=== PATIENT | female | born 2000 | race Caucasian/White ===

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

== ENCOUNTER 2021-06-07 18:43 | Inpatient (IN) ==
[2021-06-07] MEDS ORDERED: ceFAZolin 2000MG 2,000 MG/15 ML SYR IV SCH (19:00)
[2021-06-07] MEDS ORDERED: CITRIC ACID/SODIUM CITRATE 15 ML UDC PO SCH (19:00)
[2021-06-07] MEDS ORDERED: LACTATED RINGER'S 1,000 ML IV SCH ×2 (19:00→20:00)
[2021-06-07] MEDS ORDERED: CITRIC ACID/SODIUM CITRATE 15 ML UDC ONE (19:02)
[2021-06-07] MEDS ORDERED: PHENYLEPHRINE HCL 10 MG/ML VIAL ONE (19:08)
[2021-06-07] MEDS ORDERED: SUCCINYLCHOLINE 100MG/5ML SYR IV ONE (19:08)
[2021-06-07] MEDS ORDERED: ONDANSETRON INJ 2 MG/ML 2 ML VIAL ONE (19:08)
[2021-06-07] MEDS ORDERED: OXYTOCIN 10 UNITS/ML 10ML VIAL ONE (19:08)
[2021-06-07] MEDS ORDERED: PROPOFOL IV EMULSION 10 MG/ML 20 ML VIAL IV ONE (19:08)
[2021-06-07] MEDS ORDERED: fentaNYL citrate 100 MCG/2 ML VIAL ONE (19:08)
--- NOTE | 2021-06-07 19:12 | Anesthesiology Consultation ---
Date of Service June 07, 2021 Assessment & Plan (1) Encounter for pre-operative examination: Chart Review Chart Review: Acceptable Risk for Surgery and Patient NOT seen in Pre Admission Testing Consults Requested none History Surgery Operation Date: 06/07/21 19:40 Proposed Procedures p Section in LD(Bilateral) - Lionel Moran MD Allergies Allergy/AdvReac Type Severity Reaction Status Date / Time No Known Allergies Allergy Unknown Verified 05/06/18 14:35 [id number] Allergy Unknown Unknown Uncoded 05/06/18 14:35 Medications Home Medications Medication Instructions Recorded Confirmed Last Taken vitamins-iron fumarate 27 1 tab PO DAILY 05/06/18 05/06/18 05/05/18 08:00 mg iron-folic acid 0.8 mg tablet ( Vitamin) sertraline 50 mg tablet (Zoloft) 50 mg PO DAILY 05/06/18 05/06/18 05/06/18 08:00 ibuprofen 600 mg tablet 600 mg PO Q6H PRN #30 tab 05/09/18 Unknown Exercise / Class Metabolic Activity II 4-5 Yardwork/Stairs/Walk up hill Past Anesthesia History No Hx of Anesthesia Complications and No Family Hx of Anesthesia Complications History of PONV No Hx of PONV and No Hx of Motion Sickness Social History Smoking Status: Never smoker Hx Alcohol Use: No Hx Substance Use: No substance use type: does not use Testing Laboratory Results 06/07/21 19:20
[2021-06-07] MEDS ORDERED: MoRPHine SULFATE PF 1 MG/ML 10 ML AMP/VIAL ONE (19:25)
[2021-06-07 19:31] LABS: Hematocrit (blood only) 35.7 % (37-47); Hemoglobin 12.7 g/dL (12.0-16.0); Mean Corpuscular Hemoglobin 29.7 pg (25-34); Mean Corpuscular Hgb Conc 35.6 g/dL (32-36); Mean Corpuscular Volume 83.4 fL (80-100); Mean Platelet Volume 10.7 fL (7.4-10.4); Platelet Count 196 K/uL (130-400); RDW Coefficient of Variation 13.5 % (11.5-14.5); RDW Standard Deviation 40.5 fL (36.4-46.3); Red Blood Count 4.28 M/uL (4.2-5.4); White Blood Count 12.48 K/uL (4.8-10.8)
[2021-06-07 19:54] LABS: ALC (manual) 3.58 K/uL (1.2-3.4); ANC (manual) 8.04 K/uL (1.4-6.5); Basophils # (manual) 0.11 K/uL (0-0.2); Basophils % (manual) 0.9 %; Eosinophils # (manual) 0.21 K/uL (0-0.5); Eosinophils % (manual) 1.7 %; Lymphocytes # (manual) 3.58 K/uL (1.2-3.4); Lymphocytes % (manual) 28.7 %; Monocytes # (manual) 0.54 K/uL (0.11-0.59); Monocytes % (manual) 4.3 %; Neutrophils # (manual) 8.04 K/uL (1.4-6.5); Neutrophils % (manual) 64.4 %; RBC Morphology Unremarkable
[2021-06-07 20:13] LABS: Fibrinogen 441 mg/dl (184-400); Partial Thromboplastin Ratio 0.9; Partial Thromboplastin Time 24.7 Seconds (21.0-31.0); Prothrombin Time 10.3 Seconds (9.0-12.0)
--- NOTE | 2021-06-07 20:50 | XRay Report ---
KUB CLINICAL HISTORY: Incomplete instrument count. section. FINDINGS: 4 AP, portable, supine abdominal radiographs are obtained. No prior studies are available f or comparison at the time of dictation. There is a nonobstructed abdominal bowel gas pattern noting m oderate colonic fecal retention. Soft tissue gas projects over the pelvis, likely due to recent surge ry. There is no radiodense foreign body identified to suggest retained surgical implement. A large so ft tissue mass projecting over the pelvis likely represents the gravid uterus. Pelvic phleboliths are noted. The bony structures appear intact. IMPRESSION: 1. There is no radiographic evidence of retained surgical implement. 2. No bowel obstruction. 3. Additional findings as above. Electronically signed by: Yuriy Michaels M.D. 06/07/2021 8:49 PM
[2021-06-07] MEDS ORDERED: MAGNESIUM HYDROXIDE SUSP 30 ML UDC PO PRN (21:13)
[2021-06-07] MEDS ORDERED: MEPERIDINE HCL 50 MG/ML CARP IV PRN (21:13)
[2021-06-07] MEDS ORDERED: KETOROLAC 30 MG/ML VIAL IV PRN (21:13)
[2021-06-07] MEDS ORDERED: BENZOCAINE 20% AER SPR 82.5 GM CAN EXT PRN (21:13)
[2021-06-07] MEDS ORDERED: PROMETHAZINE HCL 25 MG in SODIUM CHLORIDE 0.9% 50 ML IV PRN (21:13)
[2021-06-07] MEDS ORDERED: HYDROCORTISONE ACETATE 25 MG SUPP PR PRN (21:13)
[2021-06-07] MEDS ORDERED: DIPHTHERIA/TETANUS/PERTUSSIS 0.5 ML SYR/VIAL IM ONE (21:13)
[2021-06-07] MEDS ORDERED: SENNA 8.6 MG TAB PO PRN (21:13)
[2021-06-07] MEDS ORDERED: MEASLES, MUMPS & RUBELLA VIRUS VIAL SQ ONE (21:18)
--- NOTE | 2021-06-07 21:24 | Anesthesiology Progress Note ---
Date of Service June 07, 2021 Anesthesia Post Procedure Vital Signs Vital Signs: Temp Pulse Resp BP Pulse Ox 06/07/21 21:19 77 130/87 06/07/21 21:18 76 100 06/07/21 21:13 82 99 06/07/21 21:08 72 144/71 H 99 06/07/21 21:03 82 98 06/07/21 20:58 77 95 06/07/21 20:53 73 100 06/07/21 20:48 80 114/72 100 06/07/21 20:46 18 100 06/07/21 20:45 36.8 C 20 Pain Intensity Bilateral Lower Abdomen: Pain Intensity: 3 Transfer of Care Handoff Completed per policy Notes Mental Status: alert / awake / arousable and participated in evaluation Patient Amnestic to Procedure: Yes Nausea / Vomiting: adequately controlled Pain: adequately controlled Airway Patency, RR, SpO2: stable & adequate BP & HR: stable & adequate Hydration State: stable & adequate Anesthetic Complications: no major complications apparent and Pt Satisfied with anesthetic care
[2021-06-07] MEDS ORDERED: NO NARCOTICS OR SEDATIVES SCH (22:00)
[2021-06-07] MEDS ORDERED: NALBUPHINE HCL INJ 10 MG/ML AMP IV PRN (22:00)
[2021-06-07] MEDS ORDERED: ONDANSETRON INJ 2 MG/ML 2 ML VIAL IV PRN (22:00)
[2021-06-07] MEDS ORDERED: SODIUM CHLORIDE 0.9% 1000ML 1,000 ML IV SCH (22:00)
[2021-06-07] MEDS ORDERED: NALOXONE HCL 0.4 MG/1 ML VIAL/CARP IV PRN (22:00)
[2021-06-07] MEDS ORDERED: NALOXONE HCL 1 MG in SODIUM CHLORIDE 0.9% 1000ML 1,000 ML IV PRN (22:00)
[2021-06-07] MEDS ORDERED: LACTATED RINGER'S 500 ML IV PRN (22:00)
[2021-06-07] MEDS ORDERED: ePHEDrine sulfate 50 MG/ML AMP IV PRN (22:00)
[2021-06-07] MEDS ORDERED: DC INTRASPINAL MORPHINE SCH (22:00)
[2021-06-07] MEDS ORDERED: diphenhydrAMINE 50 MG/ML VIAL IV PRN (22:00)
[2021-06-07] MEDS ORDERED: MoRPHine SULFATE 2 MG/ML CARP IV PRN (22:00)
[2021-06-07] MEDS ORDERED: PROMETHAZINE HCL 12.5 MG in SODIUM CHLORIDE 0.9% 50 ML IV PRN (22:00)
[2021-06-07] MEDS ORDERED: MoRPHine SULFATE PF 1 MG/ML 10 ML AMP/VIAL INT SPINAL ONE (22:00)
[2021-06-07] MEDS ORDERED: NALOXONE HCL 0.08 MG in SYRINGE 1.8 ML IV PRN (22:00)
--- NOTE | 2021-06-07 22:01 | Operative Report (OR) ---
DATE OF SERVICE: 06/07/2021 PREOPERATIVE DIAGNOSES: The patient is a 21-year-old 2, para 1-0-0-1, at 39 weeks and 1 day gestation, presented to labor and delivery with spontaneous rupture of membranes, heavy vaginal bleeding , contractions, clinical abruption and remote from delivery. POSTOPERATIVE DIAGNOSES: The patient is a 21-year-old 2, para 1-0-0-1, at 39 weeks and 1 day gestation, presented to labor and delivery with spontaneous rupture of membranes, heavy vaginal bleeding , contractions, clinical abruption and remote from delivery. PROCEDURE: Emergency Primary low transverse with Pfannenstiel skin incision. SURGEON: Lionel Moran MD. ENRICHMENT ASSISTANT: Cortez Vincent MD. ESTIMATED BLOOD LOSS: 500 mL. URINE OUTPUT: Catheter drained 250 mL of clear urine. ANESTHESIA: Spinal. ANESTHESIOLOGIST: Dr. Sales. COMPLICATIONS: None. FINDINGS: Baby was a viable male delivered in cephalic presentation at 19:45, Apgars were 7/8, weight is 3533 grams. Maternal findings: Normal uterus, fallopian tubes, and ovaries. There was bloody amniotic fluid. INDICATIONS FOR PROCEDURE: The patient is a 21-year-old -0-0-1, at 39 weeks and 1 day of gestation, who presented to labor and delivery with heavy vaginal bleeding, amniotic fluid leakage and contractions started about an hour ago. She came home from work and noticed bright red bleeding in the bathroom and on her underwear and just came to the labor and delivery. On the speculum exam, we saw abundant amniotic fluid, which was all bloody and blood clots coming behind. Her cervix was 3 cm dilated and head was high at -3 station. She was remote from delivery, heart rate was reassuring and category 1. Decision was made to proceed with emergency being remote from delivery with active vaginal bleeding. DESCRIPTION OF PROCEDURE: The patient was taken to the OR and spinal anesthesia was given without difficulty. She was placed in dorsal supine position with a leftward tilt. She was prepared and draped in the usual sterile fashion. A Pfannenstiel skin incision was made, carried through to the underlying layer of fascia with the scalpel. Fascia was extended laterally with the help of Sierra scissors and rectus fascia was taken down from the muscles with Sierra scissors and bluntly with fingers. Rectus muscles were already . Peritoneum was entered bluntly and extended laterally with the help of fingers. Bladder blade was inserted. Vesicouterine peritoneum was grasped with pickups, and entered sharply with Metzenbaum scissors. A bladder blade was created digitally and bladder blade was reinserted. Lower uterine segment was incised in a transverse fashion. Incision was extended laterally with the help of fingers and bandage scissors. We came across with bloody amniotic fluid. Head was delivered without difficulty. Shoulders were delivered with minimal traction. The baby's mouth and nose were suctioned from bloody fluid, and the baby was moving and crying. Cord was clamped x2 and cut, and the baby was handed to the waiting pediatric team with Dr. Pollard, and then placenta was delivered manually as intact and complete. Uterus was exteriorized and cleared of all clots and debris. Uterus was firm and intact. Endometrium was checked to be cleaned and empty and then the uterine incision was repaired with 0 Vicryl in a running locked fashion and a second imbricating layer was placed with another 0 Vicryl in a running locked fashion. Excellent hemostasis was achieved. Cul-de-sac was irrigated with warm normal saline and suctioned. All the bloody fluid was suctioned in its entirety. Uterus was returned to the abdomen. Pelvis was irrigated with warm normal saline and suctioned. The gutters were also cleared and suctioned fluid from the bloody fluid, and incision was checked to be again hemostatic. Parietal peritoneum was reapproximated with 3-0 Vicryl in a running fashion. Rectus muscles were brought together with the same suture in a running fashion, under the fascia and rectus muscles were hemostatic. Rectus fascia was reapproximated with 0 Vicryl in a running fashion. Subcuticular fat tissue was brought together with 3-0 Vicryl in a running fashion. The skin was closed with 4-0 Monocryl in a subcuticular fashion. The patient tolerated the procedure well. Unable to do count due to emergency of the case, so we proceeded with x- ray after surgery and x-ray was negative for any foreign objects or sponges. She was taken to recovery room in stable condition. My logistics assistant was needed for retraction, aid during delivery of infant, visualization and hemostasis. Job ID: [id number] [facility]
[2021-06-07] MEDS: OXYTOCIN 20 UNITS in LACTATED RINGER'S 1,000 ML IV SCH (22:17)
[2021-06-07] MEDS: KETOROLAC 30 MG/ML VIAL IV PRN (22:23)
[2021-06-08] MEDS: OXYTOCIN 20 UNITS in LACTATED RINGER'S 1,000 ML IV SCH (06:26)
[2021-06-08 07:06] LABS: Basophils # (auto) 0.02 K/uL (0-0.2); Basophils % (auto) 0.1 %; Eosinophils % (auto) 0.6 %; Hematocrit (blood only) 35.3 % (37-47); Immature Granulocytes # (auto) 0.13 K/uL (0.00-0.02); Immature Granulocytes % (auto) 0.8 %; Lymphocytes # (auto) 2.52 K/uL (1.2-3.4); Lymphocytes % (auto) 16.1 %; Mean Corpuscular Hemoglobin 28.8 pg (25-34); Mean Corpuscular Volume 84.7 fL (80-100); Mean Platelet Volume 11.1 fL (7.4-10.4); Monocytes # (auto) 1.12 K/uL (0.11-0.59); Monocytes % (auto) 7.1 %; Neutrophils # (auto) 11.79 K/uL (1.4-6.5); Neutrophils % (auto) 75.3 %; Platelet Count 180 K/uL (130-400); RDW Coefficient of Variation 13.5 % (11.5-14.5); RDW Standard Deviation 41.2 fL (36.4-46.3); Red Blood Count 4.17 M/uL (4.2-5.4); White Blood Count 15.68 K/uL (4.8-10.8)
[2021-06-08] MEDS: KETOROLAC 30 MG/ML VIAL IV PRN ×2 (07:19→14:13)
[2021-06-08] MEDS: FERROUS SULFATE 325 MG TAB PO SCH (08:46)
[2021-06-08] MEDS: DOCUSATE SODIUM 100 MG CAP PO SCH ×2 (08:46→20:43)
[2021-06-08] MEDS: PRENATAL VITAMIN 1 TAB PO SCH (08:46)
[2021-06-08] MEDS: SIMETHICONE 80 MG CHEW PO SCH ×4 (08:46→20:44)
[2021-06-08] MEDS ORDERED: Nursing to Pharmacy Communication SCH (09:00)
[2021-06-08] MEDS ORDERED: SERTRALINE HCL 100 MG TABLET PO SCH ×2 (09:00→21:00)
--- NOTE | 2021-06-08 09:52 | Obstetrical Progress Note ---
Date of Service June 08, 2021 Assessment & Plan (1) Status post delivery: POD #1 Pt doing well anticipate disch tomorrow Results & Data ([facility]) Vital Signs (Past 12 Hours) Vital Signs Temp Pulse Pulse Resp BP BP Pulse Ox 06/08/21 09:48 70 97 06/08/21 09:43 71 97 06/08/21 09:38 68 97 06/08/21 09:33 72 96 06/08/21 09:28 70 96 06/08/21 09:23 71 96 06/08/21 09:18 76 97 06/08/21 09:13 71 96 06/08/21 09:08 78 96 06/08/21 09:03 69 97 06/08/21 08:58 79 98 06/08/21 08:53 78 97 06/08/21 08:48 85 97 06/08/21 08:45 90 94 06/08/21 08:43 82 96 06/08/21 08:38 85 96 06/08/21 08:33 84 98 06/08/21 08:30 78 20 98 06/08/21 08:28 79 97 06/08/21 08:25 91 H 90 06/08/21 08:23 105 H 100 06/08/21 08:18 76 99 06/08/21 08:15 76 93 06/08/21 08:13 75 98 06/08/21 08:08 76 97 06/08/21 08:03 73 97 06/08/21 07:58 78 97 06/08/21 07:53 75 96 06/08/21 07:49 80 94 06/08/21 07:48 79 95 06/08/21 07:43 76 97 06/08/21 07:41 73 94 06/08/21 07:38 73 98 06/08/21 07:33 80 97 06/08/21 07:30 37.0 C 20 97 06/08/21 07:28 78 96 06/08/21 07:23 74 100 06/08/21 07:18 81 97 06/08/21 07:13 72 109/64 100 06/08/21 07:08 85 99 06/08/21 07:03 82 99 06/08/21 06:58 84 100 06/08/21 06:53 82 100 06/08/21 06:48 82 100 06/08/21 06:43 83 100 06/08/21 06:38 81 100 06/08/21 06:33 80 99 06/08/21 06:28 78 100 06/08/21 06:23 83 99 06/08/21 06:18 82 100 06/08/21 06:15 18 99 06/08/21 06:13 90 100 06/08/21 06:08 86 100 06/08/21 06:03 78 99 06/08/21 05:58 74 100 06/08/21 05:53 86 100 06/08/21 05:48 82 99 06/08/21 05:43 85 100 06/08/21 05:38 93 H 100 06/08/21 05:33 84 99 06/08/21 05:28 72 97 06/08/21 05:23 73 98 06/08/21 05:18 73 96 06/08/21 05:13 70 95 06/08/21 05:08 74 96 06/08/21 05:03 76 96 06/08/21 05:00 18 99 06/08/21 04:58 74 96 06/08/21 04:53 73 96 06/08/21 04:48 75 95 06/08/21 04:43 72 96 06/08/21 04:38 73 96 06/08/21 04:33 75 96 06/08/21 04:28 74 96 06/08/21 04:23 83 97 06/08/21 04:18 77 98 06/08/21 04:13 79 98 06/08/21 04:08 76 98 06/08/21 04:03 80 97 06/08/21 04:00 36.9 C 76 18 114/65 99 06/08/21 03:58 78 98 06/08/21 03:53 79 98 06/08/21 03:48 74 98 06/08/21 03:43 78 98 06/08/21 03:39 76 114/65 06/08/21 03:38 82 99 06/08/21 03:33 79 99 06/08/21 03:28 84 100 06/08/21 03:23 79 98 06/08/21 03:18 69 100 06/08/21 03:13 77 100 06/08/21 03:08 77 100 06/08/21 03:03 83 100 06/08/21 03:00 18 100 06/08/21 02:58 88 100 06/08/21 02:53 74 98 06/08/21 02:48 78 99 06/08/21 02:43 73 99 06/08/21 02:38 76 98 06/08/21 02:33 74 99 06/08/21 02:32 82 93 06/08/21 02:28 70 97 06/08/21 02:23 72 96 06/08/21 02:18 68 96 06/08/21 02:13 75 97 06/08/21 02:08 74 97 06/08/21 02:03 72 97 06/08/21 02:00 18 99 06/08/21 01:58 74 97 06/08/21 01:53 80 98 06/08/21 01:48 73 97 06/08/21 01:43 74 97 06/08/21 01:38 71 98 06/08/21 01:33 78 98 06/08/21 01:28 82 98 06/08/21 01:23 77 98 06/08/21 01:18 75 98 06/08/21 01:13 76 98 06/08/21 01:08 77 98 06/08/21 01:03 81 99 06/08/21 01:00 18 100 06/08/21 00:58 83 98 06/08/21 00:53 75 99 06/08/21 00:48 85 99 06/08/21 00:43 77 99 06/08/21 00:38 83 99 06/08/21 00:33 82 99 06/08/21 00:30 18 100 06/08/21 00:28 91 H 99 06/08/21 00:23 81 99 06/08/21 00:18 83 99 06/08/21 00:13 76 100 06/08/21 00:08 77 100 06/08/21 00:03 80 99 06/07/21 23:58 87 100 06/07/21 23:53 90 100 06/07/21 23:48 90 98 06/07/21 23:43 86 99 06/07/21 23:40 82 94 06/07/21 23:38 83 100 06/07/21 23:33 87 99 06/07/21 23:30 36.9 C 74 18 111/76 100 06/07/21 23:29 74 111/70 06/07/21 23:28 85 100 06/07/21 23:23 92 H 100 06/07/21 23:18 87 100 06/07/21 23:13 80 99 06/07/21 23:08 80 100 06/07/21 23:03 83 100 06/07/21 22:59 88 114/73 06/07/21 22:58 88 99 06/07/21 22:53 82 99 06/07/21 22:48 78 99 06/07/21 22:46 18 06/07/21 22:43 84 99 06/07/21 22:38 85 99 06/07/21 22:33 86 100 06/07/21 22:28 78 100 06/07/21 22:23 83 100 06/07/21 22:19 76 122/77 06/07/21 22:18 92 H 100 06/07/21 22:16 36.8 C 18 06/07/21 22:13 84 100 06/07/21 22:09 82 120/73 06/07/21 22:08 81 100 06/07/21 22:03 84 100 06/07/21 21:59 84 121/73 06/07/21 21:58 84 100 06/07/21 21:53 81 100
[2021-06-08] MEDS ORDERED: LACTATED RINGER'S 1,000 ML IV SCH (15:30)
[2021-06-08] MEDS ORDERED: diphenhydrAMINE Capsule 25 MG CAP PO PRN (16:00)
[2021-06-08] MEDS ORDERED: ONDANSETRON INJ 2 MG/ML 2 ML VIAL IV PRN (16:00)
[2021-06-08] MEDS ORDERED: diphenhydrAMINE 50 MG/ML VIAL IV PRN (16:00)
[2021-06-08] MEDS ORDERED: bisacodyL 5 MG TABEC PO SCH (20:00)
[2021-06-08] MEDS: IBUPROFEN 600 MG TAB PO PRN (20:45)
[2021-06-09] MEDS: IBUPROFEN 600 MG TAB PO PRN ×3 (05:57→13:54)
[2021-06-09 07:05] LABS: Hematocrit (blood only) 32.3 % (37-47); Hemoglobin 11.2 g/dL (12.0-16.0)
--- NOTE | 2021-06-09 08:31 | Obstetrical Progress Note ---
Date of Service June 09, 2021 Assessment & Plan (1) Status post delivery: POD #1 pt doing well anticipate disch tomorrow Subjective Ambulation: ambulating normally Voiding: no voiding problems Passing Gas:: Yes Diet Tolerance:: clear liquids Lochia:: Small Feeding Type:: breast feeding Review of Systems All systems reviewed & are unremarkable except as noted in HPI & below Physical Exam Constitutional WD/WN, vitals as above well developed and well nourished Eyes PERRL, conjunctivae normal, anicteric sclerae ENMT external ear and nose normal, oropharynx normal Neck trachea midline, no thyromegaly Respiratory normal respiratory effort, lungs clear to auscultation Cardiovascular RRR, no murmur, no edema Chest (Breasts) normal inspection/palpation of breasts Gastrointestinal (Abdomen) normal bowel sounds, soft, nontender, no hepatosplenomegaly Musculoskeletal no cyanosis or clubbing, extremities motor strength 5/5 Skin no rashes, warm and dry + incision (Clean,dry and intact) Neurologic patellar DTR's 2+ bilat, sensation intact Psychiatric A+Ox3, euthymic affect Genitourinary normal external appearance Lymphatic no cervical or axillary lymphadenopathy Results & Data ([facility]) Vital Signs (Past 12 Hours) Vital Signs Temp Pulse Resp BP Pulse Ox 06/09/21 00:00 37.1 C 80 18 108/70 98 06/08/21 20:49 36.8 C 82 18 101/67 97
[2021-06-09] MEDS: DOCUSATE SODIUM 100 MG CAP PO SCH (09:31)
[2021-06-09] MEDS: oxyCODONE/ACETAMINOPHEN 5mg/325mg TAB PO PRN ×2 (09:31→13:54)
[2021-06-09] MEDS: SIMETHICONE 80 MG CHEW PO SCH ×2 (09:31→13:53)
[2021-06-09] MEDS: FERROUS SULFATE 325 MG TAB PO SCH (09:31)
[2021-06-09] MEDS: PRENATAL VITAMIN 1 TAB PO SCH (09:31)
--- NOTE | 2021-06-09 11:18 | Progress Note ---
Date of Service June 09, 2021 Assessment & Plan (1) Status post delivery: Plan: Pt wishes to be discharged home Admission and Anticipated Discharge Date Admission Date: June 07, 2021 Results & Data ([facility]) Vital Signs (Past 12 Hours) Vital Signs Temp Pulse Resp BP Pulse Ox 06/09/21 07:50 37.0 C 68 18 123/79 94 06/09/21 00:00 37.1 C 80 18 108/70 98
[2021-06-09] MEDS ORDERED: bisacodyL 10 MG SUPP PR PRN (21:15)
--- NOTE | 2021-06-11 06:47 | Discharge Summary (DS) ---
DATE OF ADMISSION: 06/07/2021. DATE OF DISCHARGE: 06/09/2021. DETAILS OF ADMISSION: The patient is a 21-year-old G2, at 39 weeks and 1 day gestation, who presente d to labor and delivery on 06/07/2021 evening with spontaneous rupture of membranes, heavy vaginal bl eeding, contractions, and clinical abruption, remote from delivery. She was taken to the operating r oom for emergency primary low transverse . She delivered a viable male at 1945 hours , Apgars were 7/9. There was bloody amniotic fluid and otherwise maternal findings were normal uteru s, fallopian tubes, and ovaries. Her surgery was uncomplicated. See dictated op note for details. In postoperative period, the patient was doing well, vital signs stable, afebrile. Physical exam was unremarkable. Urine output was adequate. On postop day #2, the patient was doing well, vital signs stable, afebrile, tolerating regular diet, passing gas, ambulating, . Physical exam wa s unremarkable. Incision was clean, dry and intact. Extremities were nontender, no edema. Her H an d H were stable at 11.2/32.3. On 06/09/2021, the patient was discharged. Discharge instructions were given. Prescriptions were written. She is to be seen in the office in a week. Job ID: [id number]
== END 2021-06-09 14:15 | disposition home or self-care (01) | DRG 786 ==
LOC: OPB 18:43 → 4S1 18:48 → 4E1 06-08 13:26